=== PATIENT | female | born 1965 | race Caucasian/White ===

== ENCOUNTER 2021-01-22 06:34 | Day surgery (SDC) | payer BC ==
[~2021-01-22] VITALS: Ht 162.6 cm; Wt 102.0 kg
[2021-01-22] MEDS ORDERED: ZESTRIL 10MG10 MG PO (07:02)
[2021-01-22] MEDS ORDERED: LIPITOR 40MG TA40 MG PO (07:03)
[2021-01-22] MEDS ORDERED: FARXIGA5 PO (07:03)
[2021-01-22] MEDS ORDERED: ASPIRIN E.C. 8181 MG PO (07:04)
[2021-01-22] MEDS ORDERED: GLUCOPHAGE500 MG/TAB PO (07:05)
[2021-01-22 07:25] VITALS: BP 126/77; PULSE 77; TEMP 97.3
[2021-01-22 08:20] VITALS: BP 103/72; PULSE 89; TEMP 97
[2021-01-22 08:35] VITALS: BP 98/74; PULSE 78
[2021-01-22 08:50] VITALS: BP 105/63; PULSE 77
--- NOTE | 2021-01-22 09:42 | NUR ---
0820- Pt returns from endo procedure via cart and RN assist to [place] [facility]. Pt ambulates from cart to recliner with RN assist. Monitors on and alarms set. Call light within reach. Report received from KAYLEN Akins. Pt alert and oriented. Pt requests coffee and muffin. Pt denies any pain or nausea. 0835- Pt taking food and drink well. No complications noted. 0850- Discharge instructions given to pt. All questions answered to pt satisfaction. Handed to pt discharge information. 0922- Pt transferred out of the hospital via wheelchair and RN assist, to private vehicle driven by .
== END 2021-01-22 09:22 | disposition home or self-care (01) ==
LOC: SDCO 06:34
DX: Z12.11 Encounter for screening for malignant neoplasm of colon (principal); K21.9 Gastro-esophageal reflux disease without esophagitis; I10 Essential (primary) hypertension; E78.5 Hyperlipidemia, unspecified; E11.65 Type 2 diabetes mellitus with hyperglycemia; Z79.899 Other long term (current) drug therapy; Z79.82 Long term (current) use of aspirin; Z79.84 Long term (current) use of oral hypoglycemic drugs; Z80.0 Family history of malignant neoplasm of digestive organs; Z80.51 Family history of malignant neoplasm of kidney; Z83.3 Family history of diabetes mellitus; Z80.42 Family history of malignant neoplasm of prostate
CPT/HCPCS: J2704; J7030

== ENCOUNTER → 2021-05-12 | Outpatient (CLI) | payer BC ==
[~2021-05-12] MED LIST: ASPIRIN E.C. 8181 MG PO; FARXIGA5 PO; GLUCOPHAGE500 MG/TAB PO; LIPITOR 40MG TA40 MG PO; ZESTRIL 10MG10 MG PO
== END ==
LOC: MC.RAD 03-24 09:30
DX: Z12.31 Encounter for screening mammogram for malignant neoplasm of breast (principal)